=== PATIENT | female | born 1945 | race Caucasian/White ===

== ENCOUNTER 2020-08-23 10:08 | Outpatient (REF) | payer MEDICARE, SELFPAY ==
--- NOTE | 2020-08-23 | MM_ITS ---
EXAMINATION: MM SCREENING DIGITAL BREAST TOMOSYNTHESIS, BILATERAL CLINICAL INFORMATION: Screening. Asymptomatic. The lifetime risk of breast cancer based on the Tyrer-Cuzick Model is 2%. COMPARISON: Mammography: 08/18/2019, 08/17/2018 TECHNIQUE: Digital breast tomosynthesis is performed in both the craniocaudal and mediolateral oblique views along with computer-aided detection (CAD). Synthesized 2D images are generated from the tomosynthesis. FINDINGS: There are scattered areas of fibroglandular density (ACR BI-RADS breast composition Category b). There are no significant masses, abnormal calcifications, or other abnormalities. Parenchymal pattern is similar to prior exam. The axilla and skin contours are unremarkable. IMPRESSION: No significant changes from prior studies. ASSESSMENT: BI-RADS 1: Negative RECOMMENDATION: Routine annual mammography screening. This patient's information was entered into a reminder system with a target due date for their next mammogram.
== END 2020-08-23 10:09 | disposition home or self-care (01) ==
LOC: HO.MAMMO 10:08
PROVIDERS: Visit Provider Family Medicine
DX: Z12.31 Encounter for screening mammogram for malignant neoplasm of breast (principal)
CPT/HCPCS: 77063; 77067

== ENCOUNTER 2020-09-29 15:26 | Outpatient (REF) | payer MEDICARE, SELFPAY ==
--- NOTE | 2020-09-29 15:36 | XR_ITS ---
EXAMINATION: XR CHEST CLINICAL INFORMATION: Chest pain. COMPARISON: None TECHNIQUE: 2 views of the chest were obtained. FINDINGS: No significant abnormality is noted involving the heart, lungs, mediastinum, bony thorax or soft tissues. XR/XR chest 2V IMPRESSION: Unremarkable chest examination.
== END 2020-09-29 15:27 | disposition home or self-care (01) ==
LOC: HO.XRAY 15:26
PROVIDERS: PCP Family Medicine; Visit Provider Family Medicine
DX: R52 Pain, unspecified (principal); Z91.81 History of falling
CPT/HCPCS: 71046

== ENCOUNTER 2020-10-21 15:22 | Outpatient (REF) | payer MEDICARE, SELFPAY ==
[2020-10-21 16:13] LABS: Basophils Percent Auto 0.7 % (0-2); Eosinophils Absolute Auto 0.1 X10*3/uL (0.0-0.4); Hematocrit 36.6 % (37-47); Hemoglobin 11.4 g/dl (12.0-16.0); Imm Gran Abs Auto 0.01 X10*3/uL (0.00-0.03); Imm Gran Pct Auto 0.2 % (0.0-0.4); Lymphocytes Absolute Auto 2.7 X10*3/uL (1.2-4.9); Lymphocytes Percent Auto 48.7 % (20-40); MANUAL DIFF FLAG NO; Mean Corpuscular HGB Conc 31.1 g/dl (31.0-35.0); Mean Corpuscular Hemoglobin 29.8 pg (27.0-33.0); Mean Corpuscular Volume 95.8 fL (80-98); Mean Platelet Volume 10.4 fL (9.4-12.3); Monocytes Absolute Auto 0.5 X10*3/uL (0.1-1.2); Monocytes Percent Auto 8.1 % (2-11); Neutrophils Absolute Auto 2.2 X10*3/uL (2.0-8.3); Neutrophils Percent Auto 40.3 % (45-73); Platelet Count 241 X10*3/uL (160-400); Red Blood Count 3.82 X10*6/uL (4.20-5.50); Red Cell Distribution Width 12.6 % (11.0-16.0); White Blood Count 5.5 X10*3/uL (4.8-10.8)
[2020-10-25 18:57] LABS: Chromogranin A 266 ng/mL (25-140)
== END 2020-10-21 15:23 | disposition home or self-care (01) ==
LOC: HO.LAB 15:22
PROVIDERS: PCP Family Medicine; Visit Provider Family Medicine
DX: D51.0 Vitamin B12 deficiency anemia due to intrinsic factor deficiency (principal); D3A.098 Benign carcinoid tumors of other sites
CPT/HCPCS: 36415; 85025; 86316

== ENCOUNTER 2021-04-09 11:01 | Outpatient (REF) | payer MEDICARE, SELFPAY ==
[2021-04-09 17:54] LABS: MANUAL DIFF FLAG NO
[2021-04-09 17:59] LABS: Basophils Percent Auto 0.5 % (0-2); Eosinophils Absolute Auto 0.1 X10*3/uL (0.0-0.4); Hematocrit 33.3 % (37-47); Hemoglobin 10.8 g/dl (12.0-16.0); Imm Gran Abs Auto 0.01 X10*3/uL (0.00-0.03); Imm Gran Pct Auto 0.2 % (0.0-0.4); Lymphocytes Absolute Auto 2.7 X10*3/uL (1.2-4.9); Lymphocytes Percent Auto 48.9 % (20-40); Mean Corpuscular HGB Conc 32.4 g/dl (31.0-35.0); Mean Corpuscular Hemoglobin 30.8 pg (27.0-33.0); Mean Corpuscular Volume 94.9 fL (80-98); Mean Platelet Volume 10.3 fL (9.4-12.3); Monocytes Absolute Auto 0.5 X10*3/uL (0.1-1.2); Monocytes Percent Auto 8.1 % (2-11); Neutrophils Absolute Auto 2.3 X10*3/uL (2.0-8.3); Neutrophils Percent Auto 40.3 % (45-73); Platelet Count 237 X10*3/uL (160-400); Red Blood Count 3.51 X10*6/uL (4.20-5.50); Red Cell Distribution Width 12.8 % (11.0-16.0); White Blood Count 5.6 X10*3/uL (4.8-10.8)
[2021-04-09 18:55] LABS: Vitamin B12 315 pg/mL (200-900)
[2021-04-19 17:02] LABS: Chromogranin A 454 ng/mL (ADULTS: <311)
== END 2021-04-09 11:02 | disposition home or self-care (01) ==
LOC: HO.LAB 11:01
PROVIDERS: PCP Family Medicine; Visit Provider Family Medicine
DX: D64.9 Anemia, unspecified (principal); D3A.00 Benign carcinoid tumor of unspecified site
CPT/HCPCS: 36415; 82607; 85025; 86316

== ENCOUNTER 2021-06-25 11:47 | Outpatient (REF) | payer MEDICARE, SELFPAY ==
--- NOTE | ~2021-06-25 | XR_ITS ---
EXAMINATION: XR CHEST CLINICAL INFORMATION: Shortness of breath. Covid positive COMPARISON: 09/29/2020 TECHNIQUE: 2 views of the chest were obtained. FINDINGS: Subtle patchy infiltration noted relatively peripherally greatest at the left base suspicious for atypical infection. This is equivocal and clinical correlation is indicated. No pleural effusion. Heart and mediastinum normal. No osseous abnormality. XR/XR chest 2V IMPRESSION: Equivocal subtle patchy infiltrates as above.
== END 2021-06-25 11:48 | disposition home or self-care (01) ==
LOC: HO.XRAY 11:47
PROVIDERS: PCP Family Medicine; Visit Provider Family Medicine
DX: U07.1 COVID-19 (principal); R06.02 Shortness of breath
CPT/HCPCS: 71046

== ENCOUNTER 2021-07-02 11:21 | Outpatient (REF) | payer MEDICARE, SELFPAY ==
[2021-07-02 12:04] LABS: COVID-19 Test Negative (Negative)
== END 2021-07-02 11:22 | disposition home or self-care (01) ==
LOC: HO.LAB 11:21
PROVIDERS: PCP Family Medicine; Visit Provider Internal Medicine
DX: Z20.822 Contact with and (suspected) exposure to COVID-19 (principal)
CPT/HCPCS: 36415; 87635; C9803

== ENCOUNTER 2021-09-05 10:36 | Outpatient (REF) | payer MEDICARE, SELFPAY ==
[2021-09-07 03:50] LABS: SARS COV2 IgG Negative (Negative)
== END 2021-09-05 10:37 | disposition home or self-care (01) ==
LOC: HO.LAB 10:36
PROVIDERS: PCP Family Medicine; Visit Provider Internal Medicine
DX: Z20.822 Contact with and (suspected) exposure to COVID-19 (principal)
CPT/HCPCS: 36415; 86769

== ENCOUNTER 2021-10-05 15:12 | Outpatient (REF) | payer MEDICARE, SELFPAY ==
--- NOTE | ~2021-10-05 | MM_ITS ---
EXAMINATION: MM SCREENING DIGITAL BREAST TOMOSYNTHESIS, BILATERAL CLINICAL INFORMATION: Screening. Asymptomatic. The lifetime risk of breast cancer based on the Tyrer-Cuzick Model is 3%. COMPARISON: Mammography: 08/23/2020, 08/18/2019, 08/17/2018 TECHNIQUE: Digital breast tomosynthesis is performed in both the craniocaudal and mediolateral oblique views along with computer-aided detection (CAD). Synthesized 2D images are generated from the tomosynthesis. FINDINGS: There are scattered areas of fibroglandular density (ACR BI-RADS breast composition Category b). There are no significant masses, abnormal calcifications, or other abnormalities. Parenchymal pattern is similar to prior studies. No developing density. No significant changes. MM/MM tomosynthesis screening BI IMPRESSION: No mammographic evidence of malignancy. ASSESSMENT: BI-RADS 1: Negative RECOMMENDATION: Routine annual mammography screening. This patient's information was entered into a reminder system with a target due date for their next mammogram.
== END 2021-10-05 15:13 | disposition home or self-care (01) ==
LOC: HO.MAMMO 15:12
PROVIDERS: Visit Provider Family Medicine
DX: Z12.31 Encounter for screening mammogram for malignant neoplasm of breast (principal)
CPT/HCPCS: 77063; 77067

== ENCOUNTER 2021-12-16 16:25 | Outpatient (REF) | payer MEDICARE, SELFPAY ==
[2021-12-16 16:40] LABS: MANUAL DIFF FLAG NO
[2021-12-16 17:09] LABS: Basophils Percent Auto 0.8 % (0-2); Eosinophils Absolute Auto 0.1 X10*3/uL (0.0-0.4); Eosinophils Percent Auto 1.8 % (0-4); Hematocrit 35.4 % (37.0-47.0); Hemoglobin 11.1 g/dl (12.0-16.0); Lymphocytes Absolute Auto 2.7 X10*3/uL (1.2-4.9); Lymphocytes Percent Auto 53.8 % (20-40); Mean Corpuscular HGB Conc 31.4 g/dl (31.0-35.0); Mean Corpuscular Hemoglobin 29.8 pg (27.0-33.0); Mean Corpuscular Volume 95.2 fL (80.0-98.0); Mean Platelet Volume 10.3 fL (9.4-12.3); Monocytes Absolute Auto 0.4 X10*3/uL (0.1-1.2); Monocytes Percent Auto 7.3 % (2-11); Neutrophils Absolute Auto 1.8 x10*3/uL (2.0-8.3); Neutrophils Percent Auto 36.3 % (45-73); Platelet Count 227 X10*3/uL (160-400); Red Blood Count 3.72 X10*6/uL (4.20-5.50); Red Cell Distribution Width 12.3 % (11.0-16.0); White Blood Count 4.9 X10*3/uL (4.8-10.8)
[2021-12-16 19:31] LABS: Vitamin B12 650 pg/mL (200-900)
== END 2021-12-16 16:26 | disposition home or self-care (01) ==
LOC: HO.LAB 16:25
PROVIDERS: PCP Family Medicine; Visit Provider Family Medicine
DX: D64.9 Anemia, unspecified (principal)
CPT/HCPCS: 36415; 82607; 85025

== ENCOUNTER 2023-11-15 17:36 | Emergency (ER) | payer MEDICARE, SELFPAY ==
[2023-11-15 17:58] VITALS: BP 179/66; PULSE 70; RESP 18; TEMP 36.7; O2SAT 94; BMI 28.0
--- NOTE | 2023-11-15 18:01 | ED_ITS ---
HPI - General Adult General Chief complaint: Epistaxis Stated complaint: blood thinners/bloody nose/heart surg 09/23 Time Seen by Provider: 11/15/23 22:43 Source: patient Mode of arrival: ambulatory Limitations: no limitations History of Present Illness HPI narrative: Patient is on Plavix and aspirin come noticed bleeding from the left nostril that is for last few hours which stoppedAfter arrival in the ER no history of epistaxis in the past no melena or bleeding from any other place Related Data Home Medications Medication Instructions Recorded Confirmed cyanocobalamin (vitamin B-12) 1,000 mcg subcut Q4W 09/04/21 09/04/21 1,000 mcg/mL injection solution Allergies Allergy/AdvReac Type Severity Reaction Status Date / Time latex Allergy Mild redness Verified 09/04/21 17:28 milk [MILK] Allergy Unknown PER TESTING Unverified 09/04/21 17:28 mushroom [MUSHROOM] Allergy Unknown PER TESTING Unverified 09/04/21 17:28 Review of Systems 2 Review of Systems: Yes all other systems are reviewed and are negative [facility] Social History Social History Patient Tobacco Use Status: Former Tobacco user Advance Directives: No Advance Directives Information Provided: No Physical Exam ED Vital Signs: Vital Signs - 24 hr 11/15/23 17:58 Temperature 98.0 F Pulse Rate 70 Respiratory Rate 18 Blood Pressure 179/66 H Pulse Oximetry 94 Oxygen Delivery Method Room Air BMI result Body Mass Index 28.0 Appearance: Alert. Oriented X3. No acute distress. Eyes: No pallor or icterus ENT: Pharynx normal. Oral Mucosa moist, no active bleeding from the nose Neck: Normal inspection. Neck supple. CVS: Normal heart rate and rhythm. Pulses normal. Respiratory: No respiratory distress. Equal air entry bilateral, Abdomen: Soft and nontender. Skin: Skin warm and dry. Normal skin color. Normal skin turgor. Neuro: Oriented X 3. Course Course Course Narrative: RME: 77 year Yo female presents to ED for epistaxis today. Patient is on Plavix and aspirin. Will order basic labs including coags. Bleeding improved and resolving. Basim be evaluated by ED provider Medical Decision Making Medical Decision Making MDM Narrative: Patient with minor anterior epistaxis which stopped spontaneously labs are stable patient advised use humidifier at home and report to the ER if recurrence of bleeding. Patient also advised to apply local pressure if recurrence of the bleeding Lab Data MDM Lab Attestation statement: I reviewed the patient's lab results. 11/15/23 18:06 11/15/23 18:06 Labs: Lab Results 11/15/23 Range/Units 18:06 WBC 5.4 (4.8-10.8) X10*3/uL RBC 3.50 L (4.20-5.50) X10*6/uL Hgb 10.5 L (12.0-16.0) g/dl Hct 33.1 L (37.0-47.0) % MCV 94.6 (80.0-98.0) fL MCH 30.0 (27.0-33.0) pg MCHC 31.7 (31.0-35.0) g/dl RDW 13.5 (11.0-16.0) % Plt Count 231 (160-400) X10*3/uL MPV 10.0 (9.4-12.3) fL Immature Gran % (Auto) 0.0 (0.0-0.4) % Neut % (Auto) 41.2 L (45-73) % Lymph % (Auto) 43.9 H (20-40) % Catron % (Auto) 9.9 (2-11) % Eos % (Auto) 4.3 H (0-4) % Baso % (Auto) 0.7 (0-2) % Lymph # (Auto) 2.4 (1.2-4.9) X10*3/uL Catron # (Auto) 0.5 (0.1-1.2) X10*3/uL Eos # (Auto) 0.2 (0.0-0.4) X10*3/uL Baso # (Auto) 0.0 (0.0-0.2) X10*3/uL Abs Immat Gran (auto) 0.00 (0.00-0.03) X10*3/uL Absolute Neuts (auto) 2.2 (2.0-8.3) x10*3/uL Absolute Nucleated RBC 0.000 (0.0-0.012) X10*3/uL Nucleated RBC % (auto) 0.0 (0.0-0.2) /100WBC PT 11.7 (11.1-13.3) SEC INR 1.0 (0.9-1.1) APTT 34.0 (26.0-36.4) SEC Sodium 142 (135-145) mmol/L Potassium 3.8 (3.3-5.1) mmol/L Chloride 107 (96-108) mmol/L Carbon Dioxide 25 (22-29) mmol/L Anion Gap 14 (12-20) BUN 19 H (9-16) mg/dL Creatinine 0.83 (0.5-1.4) mg/dL Estim Creat Clear Calc 52.2 Estimated GFR > 60 Random Glucose 96 (60-115) mg/dL Calcium 9.3 (8.4-10.2) mg/dL Total Bilirubin 0.3 (0.0-1.0) mg/dL AST 19 (5-31) U/L ALT 11 (0-31) U/L Alkaline Phosphatase 79 (39-117) U/L Total Protein 7.5 (6.5-8.0) g/dL Albumin 3.8 (3.5-5.0) g/dL Discharge Plan Discharge Clinical Impression: Epistaxis Patient Disposition: Home, Self-Care Instructions: Nosebleed (ED) Additional Instructions: Care and cautions as advised Report to the ER if recurrence of the bleed Prescriptions: No Action cyanocobalamin (vitamin B-12) 1,000 mcg/mL solution 1,000 mcg subcut Q4W Interventions: ED Discharge Assessment Last Done: 11/15/23 22:54 Discharge Date/Time: 11/15/23 22:55
[2023-11-15 18:10] LABS: MANUAL DIFF FLAG NO
[2023-11-15 18:12] LABS: Basophils Percent Auto 0.7 % (0-2); Eosinophils Absolute Auto 0.2 X10*3/uL (0.0-0.4); Eosinophils Percent Auto 4.3 % (0-4); Hematocrit 33.1 % (37.0-47.0); Hemoglobin 10.5 g/dl (12.0-16.0); Lymphocytes Absolute Auto 2.4 X10*3/uL (1.2-4.9); Lymphocytes Percent Auto 43.9 % (20-40); Mean Corpuscular HGB Conc 31.7 g/dl (31.0-35.0); Mean Corpuscular Volume 94.6 fL (80.0-98.0); Monocytes Absolute Auto 0.5 X10*3/uL (0.1-1.2); Monocytes Percent Auto 9.9 % (2-11); Neutrophils Absolute Auto 2.2 x10*3/uL (2.0-8.3); Neutrophils Percent Auto 41.2 % (45-73); Platelet Count 231 X10*3/uL (160-400); Red Cell Distribution Width 13.5 % (11.0-16.0); White Blood Count 5.4 X10*3/uL (4.8-10.8)
[2023-11-15 18:17] LABS: Prothrombin Time 11.7 SEC (11.1-13.3)
[2023-11-15 18:31] LABS: Alanine Aminotransferase 11 U/L (0-31); Albumin Level 3.8 g/dL (3.5-5.0); Alkaline Phosphatase 79 U/L (39-117); Anion Gap 14 (12-20); Aspartate Amino Transferase 19 U/L (5-31); Bilirubin Total 0.3 mg/dL (0.0-1.0); Blood Urea Nitrogen 19 mg/dL (9-16); Calcium 9.3 mg/dL (8.4-10.2); Carbon Dioxide 25 mmol/L (22-29); Chloride 107 mmol/L (96-108); Creatinine Clr Calc Pharmacy 52.2; Estimated Glomerular Filt Rate > 60; Glucose Random 96 mg/dL (60-115); Potassium 3.8 mmol/L (3.3-5.1); Sodium 142 mmol/L (135-145); Total Protein 7.5 g/dL (6.5-8.0)
== END 2023-11-15 22:55 | disposition home or self-care (01) ==
PROVIDERS: Physician Assistant; Emergency Provider Internal Medicine; PCP Family Medicine
DX: R04.0 Epistaxis (principal); Z79.01 Long term (current) use of anticoagulants; Z79.899 Other long term (current) drug therapy
CPT/HCPCS: 36415; 80053; 85025; 85610; 85730; 99282; 99283

== ENCOUNTER 2024-12-16 22:23 | Emergency (ER) | payer MEDICARE, SELFPAY ==
--- NOTE | ~2024-12-16 | XR_ITS ---
CLINICAL HISTORY: cough 2 view chest x-ray Comparison: Chest x-ray from 06/25/2021 Findings: New mild pulmonary opacities including right infrahilar region can be seen with pneumonitis or bronchitis. No pneumothorax. Small right pleural effusion versus pleural thickening. New sternotomy changes. Imaged mediastinum is otherwise unchanged. Degenerative changes include imaged shoulders, AC joints, and spine. Mild vertebral height losses appear unchanged. Mild rib deformities appear old chronic. IMPRESSION: New right infrahilar opacities concerning for pneumonitis. This document has been electronically signed by: Ramez Calabrese MD on 12/17/2024 00:05:37
--- NOTE | ~2024-12-16 | CT_ITS ---
EXAMINATION: CT CHEST WITHOUT IV CONTRAST INDICATION: cough, brown sputum, ?pleural effusion vs PNA COMPARISON: There are no prior studies available for comparison. TECHNIQUE: Helical CT scan of the chest was performed without intravenous contrast. Coronal and sagittal reformatted images were generated and reviewed. This CT exam was performed with one or more of the following dose reduction techniques: automated exposure control, adjustment of the mA and/or kV according to patient size, use of iterative reconstruction technique. DLP: mGy-cm CHEST: THYROID: There is a 2.0 x 1.1 cm nodule of the left thyroid lobe. LUNGS: There is patchy airspace opacity in the right middle lobe and in both lower lobes, compatible with pneumonia. There is a 4 mm nodule in the right lower lobe (series 4, image 99). MEDIASTINUM: There is no mediastinal lymphadenopathy. TALITA: Evaluation of the hilar regions is limited by lack of intravenous contrast material. CARDIOVASCULATURE: The heart is enlarged. There is no pericardial effusion. The thoracic aorta is normal in caliber. DEGREE OF CORONARY CALCIFICATION: severe, status post CABG. PLEURA: There is no pleural effusion. No pneumothorax. MAIN AIRWAYS: The mainstem bronchi and proximal branches are patent. AXILLA: There is no axillary lymphadenopathy. BONES AND SOFT TISSUES: Unremarkable UPPER ABDOMEN: The visualized portions of the liver, spleen, and adrenals have an unremarkable appearance. There is a small hiatal hernia. CT/CT chest wo IV con IMPRESSION: 1. Patchy airspace opacities in the right middle lobe and in both lower lobes, compatible with pneumonia. Follow-up is recommended to document resolution. 2. 4 mm right lower lobe nodule. Six-month follow-up chest CT is recommended. 3. Cardiomegaly. Small hiatal hernia. Electronically signed by: Manny Gaines MD 12/17/2024 08:29 AM EST
[2024-12-16 23:04] VITALS: BP 136/79; PULSE 103; RESP 18; TEMP 37.4; O2SAT 94; BMI 30.3
[2024-12-16 23:32] LABS: IDNOW Serial# 6674DD1D; Strep A Nucleic Acid Negative (Negative)
[2024-12-16 23:38] LABS: COVID-19 Test Negative (Negative); IDNOW Serial# 58CA691E
[2024-12-16 23:39] LABS: IDNOW Serial# 55D5AD1C; Influenza A Negative (Negative); Influenza B2 Negative (Negative)
[2024-12-17 05:23] VITALS: BP 149/67; PULSE 89; RESP 16; TEMP 37; O2SAT 94
--- NOTE | 2024-12-17 06:44 | ED.GENADULT ---
HPI - General Adult General Chief complaint: General Medical Stated complaint: loss of voice Time Seen by Provider: 12/17/24 06:40 Source: patient Mode of arrival: ambulatory Limitations: no limitations History of Present Illness ED Provider: SUSAN STOKES PA-C HPI narrative: 79-year-old female with pmhx significant for HTN, HDL, triple bypass, anxiety presents to the ED today for evaluaiton of chest congestion, cough productive of brown sputum, sore throat and hoarse voice x2 days. She was evaluated at urgent care yesterday for same symptoms. She was diagnosed with bronchitis, prescribed an albuterol inhaler and Z-Reuben. She reports picking both medications up from the pharmacy however has been not started Z-Reuben yet. She decided to come to the ED for further evaluation as she was concerned for pneumonia. Patient reports Googling the medications that she was prescribed yesterday. She notes concern about medication interactions with the albuterol prescribed and her current metoprolol. Denies any hx of lung conditions. Admits to smoking tobacco x4 years when she was younger. She does not currently smoke tobacco or vape. Denies fever, chills, chest pain, wheezing, SOB, palpitations, hemoptysis. Related Data Home Medications ?Medication ?Instructions ?Recorded ?Confirmed cyanocobalamin (vitamin B-12) 1,000 mcg subcut Q4W 09/04/21 09/04/21 1,000 mcg/mL injection solution Previous Rx's ?Medication ?Instructions ?Recorded doxycycline monohydrate 100 mg 100 mg PO BID 7 days #14 caps 12/17/24 capsule Allergies Allergy/AdvReac Type Severity Reaction Status Date / Time latex Allergy Mild redness Verified 12/16/24 23:08 milk [MILK] Allergy Unknown PER TESTING Unverified 12/16/24 23:08 mushroom [MUSHROOM] Allergy Unknown PER TESTING Unverified 12/16/24 23:08 Review of Systems Review of Systems: Constitutional: No fever, chills, fatigue, night sweats, weight changes ENT/Mouth: No ear pain, hearing loss, nasal congestion, sinus pain, rhinorrhea, +sore throat, +horse voice Eyes: No eye pain, swelling, redness, vision changes, discharge Cardio: No chest pain, palpitations, GIBSON, orthopnea, peripheral edema Pulm: No SOB, wheezing, dyspnea, hemoptysis, +productive cough GI: No nausea, vomiting, hematemesis, abdominal pain, diarrhea, constipation, hematochezia, melena : No irregular bleeding, dysuria, frequency, urgency, hesitancy, hematuria, flank pain, urinary flow changes, urinary incontinence or retention MSK: No back pain, neck pain, joint pain, myalgias Skin: No lesions, rashes Neuro: No weakness, numbness, paresthesias, LOC, dizziness, headache Psych: No anxiety/panic, depression, SI/HI, AH/VH All other systems reviewed and are negative. [facility] Past Medical History Attestation statement: The following information was validated with the patient. Source: old records reviewed and nursing notes reviewed Social History Social History Patient Tobacco Use Status: Former Tobacco user Advance Directives: No Advance Directives Information Provided: Yes Physical Exam ED Vital Signs: Vital Signs - 24 hr 12/16/24 23:04 12/17/24 05:23 Temperature 99.4 F 98.6 F Pulse Rate 103 H 89 Respiratory Rate 18 16 Blood Pressure 136/79 149/67 H Pulse Oximetry 94 94 Oxygen Delivery Method Room Air Room Air BMI result Body Mass Index 30.3 low grade temp of 99.4F on arrival, tachycardic. vitals are otherwise wnl. General: Well appearing, in no acute distress. Skin: Warm, dry, intact. No rashes or lesions. Head: Normocephalic, atraumatic. EENT: Hearing is intact b/l. Conjunctiva clear. PERRLA. EOM intact. Moist mucous membranes.? Neck: Supple without LAD Cardiac: Chest wall symmetric. RRR Lungs: Normal respiratory effort without accessory muscle use. ambulating w/ steady gait without resp distress. no tripoding. no cough appreciated. CTA bilaterally. Back: No midline spinous or paraspinal tenderness. No step off deformity. Ext: Upper and lower extremities atraumatic, without tenderness, deformity, swelling or erythema. no pitting edema. no calf tenderness. Neuro: AOx3. Normal speech. Ambulating with steady gait. Psych: Appropriate mood and affect. Responds appropriately to questions. Course Course Course Narrative: Patient tested negative for COVID, flu, RSV, strep throat. Her chest x-ray demonstrated pulmonary opacities to right infrahilar region questioning pneumonitis or bronchitis. Also question small right pleural effusion versus pleural thickening. New sternotomy changes secondary to recent I past. Otherwise unremarkable. To further characterize findings on chest x-ray, CT chest was obtained which shows patchy airspace opacities to right middle lobe and both lower lobes compatible with pneumonia. No pleural effusion. There is an incidental finding of 4 mm right lower lobe nodule recommending six-month follow up CT chest. > I discussed all workup results with patient. She tells me she was unaware of any lung nodule. 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 She has an appointment with them coming up. I advised her to follow up with either them or primary care provider for repeat imaging in order to follow progression of lung nodule. She verbalizes understanding. > she has a prescription for azithromycin prescribed by urgent care yesterday. I advised her to continue this medication. I will be adding on doxycycline. Advised to take this for 7 days. Patient has remained stable throughout ED visit today. Discussed worrisome signs and symptoms and when to return to the ED. All questions answered at this time. Patient is agreeable with disposition and stable for discharge. Medical Decision Making Medical Decision Making [facility] Narrative: 79-year-old female with pmhx significant for HTN, HDL, triple bypass, anxiety presents to the ED today for evaluaiton of chest congestion, cough productive of brown sputum, sore throat and hoarse voice x2 days. On arrival, patient initially tachycardic to 103 with low-grade temp of 99.4?. She was well-appearing and in no acute distress. Normal respiratory effort without accessory muscle use. ambulating w/ steady gait without resp distress. No tripoding. No cough appreciated. CTA bilaterally. No pitting edema. No calf tenderness. Differential diagnosis includes viral syndrome, bronchitis, pneumonia, laryngitis, sinusitis. Unlikely ACS, arrhythmia, PE, [employer], retropharyngeal abscess, epiglottitis. Plan for viral/ strep swabs, cxr, and re-evaluation. Differential Diagnosis Differential Diagnoses: The differential diagnosis associated with the presentation includes As above Admission/Observation Not indicated Lab Data [facility] Lab Attestation statement: I reviewed the patient's lab results. As above Labs: Lab Results 12/16/24 Range/Units 23:16 COVID-19 (DIMA) Negative (Negative) COVID-19 Clin Com See Note Influenza Type A (BHARAT) Negative (Negative) Influenza Type B (BHARAT) Negative (Negative) Influenza A & B Note See Note S. pyogenes GrpA BHARAT Negative (Negative) Independent Interpretation I performed an independent interpretation of an: Plain X-Ray and CT Scan Interpretation: CT chest showing opacities to right middle lobe Radiology Impression Discussion of test interpretation with radiology: I have reviewed the radiologist's reading. Radiologist Impression: Procedure(s): CT chest wo IV con Accession Number(s): [id number] cc: Bradley Huitron MD; Susan Stokes~ Report Number: [id number]: Total DLP = 287.00 mGy-cm EXAMINATION: CT CHEST WITHOUT IV CONTRAST INDICATION: cough, brown sputum, ?pleural effusion vs PNA COMPARISON: There are no prior studies available for comparison. TECHNIQUE: Helical CT scan of the chest was performed without intravenous contrast. Coronal and sagittal reformatted images were generated and reviewed. This CT exam was performed with one or more of the following dose reduction techniques: automated exposure control, adjustment of the mA and/or kV according to patient size, use of iterative reconstruction technique. DLP: mGy-cm CHEST: THYROID: There is a 2.0 x 1.1 cm nodule of the left thyroid lobe. LUNGS: There is patchy airspace opacity in the right middle lobe and in both lower lobes, compatible with pneumonia. There is a 4 mm nodule in the right lower lobe (series 4, image 99). MEDIASTINUM: There is no mediastinal lymphadenopathy. TALITA: Evaluation of the hilar regions is limited by lack of intravenous contrast material. CARDIOVASCULATURE: The heart is enlarged. There is no pericardial effusion. The thoracic aorta is normal in caliber. DEGREE OF CORONARY CALCIFICATION: severe, status post CABG. PLEURA: There is no pleural effusion. No pneumothorax. MAIN AIRWAYS: The mainstem bronchi and proximal branches are patent. AXILLA: There is no axillary lymphadenopathy. BONES AND SOFT TISSUES: Unremarkable UPPER ABDOMEN: The visualized portions of the liver, spleen, and adrenals have an unremarkable appearance. There is a small hiatal hernia. CT/CT chest wo IV con IMPRESSION: 1. Patchy airspace opacities in the right middle lobe and in both lower lobes, compatible with pneumonia. Follow-up is recommended to document resolution. 2. 4 mm right lower lobe nodule. Six-month follow-up chest CT is recommended. 3. Cardiomegaly. Small hiatal hernia. External Record Review External record reviewed: Inpatient record Prescription Management I considered prescription management with: Antibiotic (Azithromycin, doxycycline) Social Determinants Patient?s care significantly limited by Social Determinants of Health including: Other Social Determinant of Health Critical Care Time Critical Care Time Critical Care Time: No Discharge Plan Discharge Clinical Impression: CAP (community acquired pneumonia) Patient Disposition: Home, Self-Care Instructions: Community Acquired Pneumonia (ED) Additional Instructions: You tested negative for COVID, flu, RSV, strep throat. The CT scan of your chest shows findings concerning for pneumonia within your right middle lobe and both lower lobes of your lungs. As discussed, there is an incidental finding of a 4 mm nodule within your right lower lobe. This needs to be followed up with outpatient. Recommending repeat CT of your chest in 6 months. Please follow up with your oncologist regarding this finding. Treatment for pneumonia is with antibiotics. You picked up a prescription for azithromycin prescribed by urgent care yesterday. Please take this to completion for treatment. I am also adding a 2nd antibiotic, doxycycline for double coverage. Please take this as prescribed for the next 7 days. Follow up with primary care provider. Return with any new or worsening symptoms. In the case of an emergency call 911. CT chest wo IV con IMPRESSION: 1. Patchy airspace opacities in the right middle lobe and in both lower lobes, compatible with pneumonia. Follow-up is recommended to document resolution. 2. 4 mm right lower lobe nodule. Six-month follow-up chest CT is recommended. 3. cardiomegaly. small hiatal hernia. Prescriptions: New doxycycline monohydrate 100 mg capsule 100 mg PO BID 7 Days Qty: 14 0RF No Action cyanocobalamin (vitamin B-12) 1,000 mcg/mL solution 1,000 mcg subcut Q4W Referrals: Bradley Huitron MD [Primary Care Provider] - Print Language: Luxembourgish
[2024-12-17 09:21] VITALS: BP 149/67; PULSE 89; RESP 16; TEMP 37; O2SAT 94
== END 2024-12-17 09:22 | disposition home or self-care (01) ==
PROVIDERS: Emergency Provider Emergency Medicine; PCP Family Medicine
DX: J18.9 Pneumonia, unspecified organism (principal); R05.9 Cough, unspecified; J02.9 Acute pharyngitis, unspecified; I10 Essential (primary) hypertension; I51.7 Cardiomegaly; K44.9 Diaphragmatic hernia without obstruction or gangrene
CPT/HCPCS: 71046; 71250; 87502; 87635; 87651; 99283; 99284

== ENCOUNTER → 2024-12-16 23:32 | Outpatient (BNV) | payer MEDICARE, SELFPAY | PROVIDERS: Visit Provider Radiology Neuroradiology | DX: R05.9 Cough, unspecified (principal) | CPT/HCPCS: 71046 ==

== ENCOUNTER → 2024-12-17 07:09 | Outpatient (BNV) | payer MEDICARE, SELFPAY | PROVIDERS: Emergency Provider Emergency Medicine; PCP Family Medicine; Visit Provider Radiology Diagnostic Radiology | DX: R05.9 Cough, unspecified (principal) | CPT/HCPCS: 71250 ==

== ENCOUNTER 2025-11-02 07:03 | Emergency (ER) | payer MEDICARE, SELFPAY ==
--- NOTE | ~2025-11-02 | XR_ITS ---
CLINICAL HISTORY: cough 2 view chest x-ray Comparison: CR - XR CHEST 2V - 12/16/24 23:41 EST Findings: No consolidation or effusion. Mild chronic interstitial prominence. Heart size is normal. No acute fracture. IMPRESSION: 1. No acute findings. This document has been electronically signed by: Felipe Sales MD on 11/02/2025 08:15:35
[2025-11-02 07:13] VITALS: BP 148/69; PULSE 77; RESP 18; TEMP 36.8; O2SAT 94; BMI 31.9
[2025-11-02 07:46] LABS: Strep A Nucleic Acid Negative (Negative)
[2025-11-02 08:16] LABS: Resp Syncy Virus RNA Qual PCR NEGATIVE (Negative); SARS COV2 PCR INHOUSE NEGATIVE (Negative)
--- OUTSIDE RECORDS SUMMARY | 2025-11-02 08:44 | XMS_ITS | Patient Health Record ---
Author Organization [facility] Address [address] [place] [address] Care Team Providers Care Grades 1 Through 5 Teacher Name Role Phone Jorge Taipa MD Primary Care Provider UnavailLuís Lee Unavailable [phone] Allergies Allergen (clinical drug ingredient) Drug/Non Drug Allergy documented on EMR Reaction Allergy Type Onset Date Status Epinephrine epinephrine (uncoded) Unknown Allergy Inactive Novacaine Unknown Drug Allergy Inactiv e latex Unknown Drug Allergy Active Reason For Referral No Information Medications Medication SIG (Take, Route, Frequency, Duration) Notes Start Date End Date Status L22-Dryyhm b12 shots monthly A ctive Multivitamin Active Social History Tobacco Use: Social History Observation Description Date Details (start date - stop date) Former Smoker NA - NA Tobacco Use/Smoking Question Answer Notes Are you a: former smoker When did you start smoking? 1966 When did you stop smoking? 1977 Additional Findings: Tobacco Non-User Current no n-smoker Alcohol Screen Question Answer Notes Did you have a drink containing alcohol in the p ast year? Yes Points 0 Interpretation Negative Tobacco use other than smoking: Question Answer Notes Are you an other tobacco user? No Plan Of Treatment Pending Test Test Name Order Date X ray : Foot, left 3V 08/11/2017 [id number] 09/08/2017 [id number]- Debride <25 sq cm 09/22/2017 [id number]- Debride <25 sq cm 10/26/2017 [id number]- Debride <25 sq cm 03/08/2018 [id number]- Debride <25 sq cm 03/30/2018 Insurance Providers Payer Name Payer Address Payer Phone Subscriber Number Group Number Insured Name Patient Relationship to Insured Coverage Start Date Coverage End Date Medicare [employer] [address] [place] [address] [id number] Amena Paredes Self - patient is the insured 9 [employer] [address] [place] [address] [id number] Amena Paredes Self - patient is the insured Medical (General) History Medical History History ICD Code High blood pressure Osteoporosis Surgical History Surgery Date(Month/Year) tooth extraction, 02/2018
--- OUTSIDE RECORDS SUMMARY | 2025-11-02 08:44 | XMS_ITS | Clinical Summary ---
Author Organization [facility] Address [address] [facility] [address] [place] [id number] Phone Care Team Providers Care Author'S Agent Name Role Phone Bradley Huitron MD Primary Care Provider + Allergies Active Allergy Reactions Criticality Noted Date Comments Acetaminophen Low 02/27/2024 Other Reaction(s): from allergy testing Intradermal reaction during allergy test. Latex Itching,Rash Low 07/22/2024 rash,itchiness,bumps Penicillins Itching,Rash Low 02/27/2024 Medications aspirin 81 MG EC tablet Take 81 mg by mouth. 4 Active cyanocobalamin (VITAMIN B-12) 1,000 mcg/mL injection INJECT 1 ML INTRAMUSCULAR EVERY 30 DAYS 4 Active docusate sodium (COLACE) 100 MG capsule Take 100 mg by mouth. 3 Active escitalopram oxalate (LEXAPRO) 5 MG tablet take 1 tablet by mouth everyday at bedtime Active TOPROL XL 50 mg 24 hr tablet Take 100 mg by mouth. 4 Active valsartan (DIOVAN) 40 MG tablet Take 40 mg by mouth daily. Active multivit with minerals/lutei n (MULTIVITAMIN 50 PLUS ORAL) 0 Refills, Maintenance, 04/06/24 16:17:00 EDT, Partial fill upon patient request if the prescription is for a schedule II opioid drug. 4 Active Social History Tobacco Use Types Packs/Day Years Used Date Smoking Tobacco: Former Cigarettes Smokeless Tobacco: Never Tobacco Cessation:Counseling Given: Not Answered Alcohol Use Standard Drinks/Week Comments Yes 0 (1 standard drink = 0.6 oz pur e alcohol) rarely Education Answer Date Recorded Are you interested in more education? Not on katie e 07/22/2024 Are you concerned about learning? Not on file 07/22/2024 No 07/22/2024 No 07/22/2024 Digital Access Answer Date Recorded No 07/22/2024 No 07/22/2024 Reliable internet access at home? Not on file 07/22/2024 Device with a working camera? Not on file Comments Unknown Sex and Gender Information Value Date Recorded Sex Assigned at Not on file Legal Sex Female 12:35 PM EDT Gender Identity Not on file Sexual Orientation Not on file Last Filed Vital Signs Vital Sign Reading Time Taken Comments Blood Pressure 174/77 07/22/2024 12:58 PM EDT white coat syndrome Pulse 60 07/22/2024 12:58 PM EDT Temperature 36.7 C (98.1 F) 07/22/2024 12:58 PM EDT Respiratory Rate 20 07/22/2024 12:5 8 PM EDT Oxygen Saturation 99% 07/22/2024 12: 58 PM EDT Inhaled Oxygen Concentration - - Weight 77.1 kg (170 lb) 07/22/2024 12:5 8 PM EDT Height 160 cm (5' 3 ) 07/22/2024 12:58 PM EDT Body Mass Index 30.11 07/22/2024 12:58 PM EDT Plan of Treatment Health Maintenance Due Date Last Done Comments Adult Td,Tdap Booster 1945 CREATININE LEVEL 1943 POTASSIUM LEVEL 1943 DEPRESSION SCREENING 1955 PNEUMOCOCCAL VACCINES (50+ y ears) (1 of 1 - PCV) 1993 ZOSTER VACCINES (1 of 2) 1993 OSTEOPOROSIS SCREENING INITI AL (ONE-TIME) 2008 RSV VACCINE (1 - 1-dose 75+ series) 2018 INFLUENZA VACCINE (#1) 2025 COVID-19 VACCINE ( - 2024-2 6 season) 2025 HEPATITIS A VACCINES Aged Out No long er eligible based on patient's age to complete this topic HIB VACCINES Aged Out No longer eligi ble based on patient's age to complete this topic MENINGOCOCCAL VACCINES (ACWY) Aged Out No longer eligible based on patient's age to complete this topic MENINGOCOCCAL VACCINES (B) Aged Out N o longer eligible based on patient's age to complete this topic Medical Devices Not on file Insurance MEDICARE PART A & B [employer] MEDEX SUPPLEMENT MEDICARE PART A & B [employer] MEDEX SUPPLEMENT MEDICARE PART A & B [employer] MEDEX SUPPLEMENT MEDICARE PART A & B [employer] CR[employer] MEDEX SUPPLEMENT MEDICARE PART A & B [employer] MEDEX SUPPLEMENT MEDICARE PART A & B [employer] ELDRED MEDEX SUPPLEMENT Care Teams Author'S Agent Relationship Specialty Start Date End Date Bradley Huitron MD [address] [place] [id number] PCP - General Family Medicine 07/22/24 Additional Source Comments The information contained in this document represents components of the legal health record. It is not the complete legal health record.[facility]
--- OUTSIDE RECORDS SUMMARY | 2025-11-02 08:45 | XMS_ITS | Encounter Summary ---
Author Organization [facility], Address [address] [place] [address] Phone Care Team Providers Care Design Verification Engineer Name Role Phone Bradley Huitron MD Primary Care Provider [phone] Encounter Details Date Type Department Care Team (Late st Contact Info) Description 01/26/2024 Documentation Only [facility], [address] [place] [phone] Giselle Vel[address] [place] [phone] Social History Tobacco Use Types Packs/Day Years Used Date Smoking Tobacco: Never Assessed Comments Unknown Sex and Gender Information Value Date Recorded Sex Assigned at Female 02/25/2024 10:48 PM EDT Legal Sex Female 10:40 AM EDT Gender Identity Female 02/25/2024 10:48 PM EDT Sexual Orientation Straight 02/25/2024 10 :48 PM EDT documented as of this encounter Plan of Treatment Not on file documented as of this encounter Visit Diagnoses Not on filedocumented in this encounter Care Teams Design Verification Engineer Relationship Specialty Start Date End Date Bradley Huitron MD [address] [phone] PCP - General Family Medicine 01/26/24 documented as of this encounter
--- OUTSIDE RECORDS SUMMARY | 2025-11-02 08:45 | XMS_ITS | Patient Health Record ---
Author Organization [facility] Address [address] [place] [address] Care Team Providers Care Calender Machine Operator Name Role Phone Willie (RETIRED) Jorge DOUGLASS Primary Care Provider Unavailable Manny Frye Unavailable [phone] Allergies Allergen (clinical drug ingredient) Drug/Non Drug Allergy documented on EMR Reaction Allergy Type Onset Date Status epinephrine Adrenalin Unknown Drug Allergy Activ e novacaine Unknown Drug Allergy Active Reason For Referral No Information Medications Medication SIG (Take, Route, Frequency, Duration) Notes Start Date End Date Status Multi Vitamin/Minerals - Tablet Orally Active Cyanocobalamin 1000 MCG/ML Solution 1000mcg Injection monthly Active Immunizations Vaccine Route Administration Date Status Comme nts Influenza Unknown 12/28/2018 Refused Social History Tobacco Use: Social History Observation Description Date Details (start date - stop date) Former Smoker NA - NA Social History Drugs/Alcohol: Social Info Question Answer Notes Alcohol Screen Did you have a drink containing alcohol in the past year? Yes How often did you have a drink containing alcohol in the past year? Monthly or less (1 point) How many drinks did you have on a typical day when you were drinking in the past year? 1 or 2 drinks (0 point) How often did you have 6 or more drinks on one occasion in the past year? Never (0 point) Points 1 Interpretation Negative Tobacco Use: Social Info Question Answer Notes Tobacco Use/Smoking Patient is a former smoker How long has it been since you last smoked? > 10 years Additional Details Category Social Info Options Details Miscellaneous: Marital status: Occupation: Retired realtor; former RN many years ago--she and her recently purchased a [employer] in [employer] specializing in posters Section Notes: Nonsmoker; no sig alcohol Nonsmoker; no sig alcohol Nonsmoker; no sig alcohol Nonsmoker; no sig alcohol Problems Problem Type SNOMED Code ICD Code Onset Dates Problem Status W/U Status Risk Notes Problem Epigastric pain (81528567) Epigastric pain (R10.13) Active confirmed Problem Pernicious anemia (86166511) Pernicious anemia (D51.0) Active confirmed Problem Benign carcinoid tumor of stomach (09467072718132 9) 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 Plan Of Treatment Pending Test Test Name Order Date BUN 12/28/2018 CREATININE 12/28/2018 LIVER PROFILE 10/18/2017 AMYLASE 10/18/2017 LIPASE 10/18/2017 CBC w DIFF 10/18/2017 5 HIAA 12/28/2018 Future Test Test Name Order Date UPPER GI ENDOSCOPY 07/13/2017 Insurance Providers Payer Name Payer Address Payer Phone Subscriber Number Group Number Insured Name Patient Relationship to Insured Coverage Start Date Coverage End Date MEDICARE OF [place] [address] [facility] [address] [id number] THEOVIVIANE Self - patient is the insured MEDEX ATTN CLAIMS [address] [place] [address] [phone] [id number] THEO, VIVIANE Self - patient is the insured Medical (General) History Medical History History ICD Code Hypertension Denies DC,DM,CVA,Lung disease,renal dise ase Negative screening colonoscopies 2015 an d 2005 while living in [place] Pernicious anemia with carci noid tumor in stomach--EGD/EUS and biopsies with MAC in 2015 while living in [place]--this was approximately 10-12 mm in diameter along the anterior gastric wall in the body of the stomach--- biopsies at that time described a Grade 1 carcinoid tumor and the EUS described involvement of layers one and 2 of the gastric wall. The lesion was only biopsied at that time and not removed. Panic attacks/Anxiety Essential head tremor Positional vertigo EGD in September of 2017 reve aled the known carcinoid tumor in the stomach, confirmed by biopsies along the anterior gastric wall--the endoscopy was otherwise unremarkable. I did review the pathology with the pathologist at [facility]. This was a well-differentiated carcinoid tumor without any increased mitoses nor any other aggressive features. Chromogranin A level was 192 in 2017 and 294 in November of 2018, with the upper limit of normal being 140 She underwent an endoscopic ultrasound and endoscopic resection of the small gastric carcinoid tumor by Dr. Becerra at [facility] in March of 2019. She had a normal 24-hour 5 HIAA and CAT scan of the abdomen prior to that. The resected carcinoid tumor size was 1.1 cm and was a well-differentiated neuroendocrine neoplasm, Grade 1. There was involvement of the submucosa and a mitosis rate of zero. Ki-67 labeling index was 1-2%. There was lymphovascular and perineural invasion. Hpylori was negative and there was patchy intestinal metaplasia. The tumor was < 0.1 cm from the margin. The tumor stage was pT2. A followup chromogranin was 200 in June of 2019. Surgical History Surgery Date(Month/Year) Tonsillectomy and adenoidectomy Periodontal surgery
--- OUTSIDE RECORDS SUMMARY | 2025-11-02 08:45 | XMS_ITS | Clinical Summary ---
Author Organization [facility] [place], Address [address] [place] [address] Phone Care Team Providers Care Sql Server Bi Developer Name Role Phone Bradley Huitron MD Primary Care Provider [phone]- [phone] Allergies Active Allergy Reactions Criticality Noted Date Comments Acetaminophen 02/27/2024 Latex 02/27/2024 Penicillins Itching,Rash Low 02/27/2024 Medications aspirin (ST PARAG) 81 MG EC tablet Take 81 mg by mouth 1 (one) time each day Active clopidogrel (PLAVIX) 75 MG tablet Take 75 mg by mouth 1 (one) time each day Active docusate sodium (COLACE) 100 MG capsule Take 100 mg by mouth in the morning and 100 mg in the evening. Active Cyanocobalamin 1000 MCG/ML kit Inject as directed Active escitalopram (LEXAPRO) 5 MG tablet Take 5 mg by mouth 1 (one) time each day Active Multiple Vitamin (multivitamin) capsule Take 1 capsule by mouth 1 (one) time each day Active rosuvastatin (CRESTOR) 40 MG tablet Take 40 mg by mouth 1 (one) time each day Active metoprolol succinate XL (TOPROL XL) 50 MG 24 hr tablet Take 50 mg by mouth 1 (one) time each day Do not crush or chew. Active valsartan (DIOVAN) 40 MG tablet Take 40 mg by mouth 1 (one) time each day Active Active Problems Problem Noted Date Diagnosed Date Hypertension 02/27/2024 Pernicious anemia 02/27/2024 Social History Tobacco Use Types Packs/Day Years Used Date Smoking Tobacco: Never Assessed Comments Unknown Sex and Gender Information Value Date Recorded Sex Assigned at Female 02/25/2024 10:48 PM EDT Legal Sex Female 10:40 AM EDT Gender Identity Female 02/25/2024 10:48 PM EDT Sexual Orientation Straight 02/25/2024 10 :48 PM EDT Plan of Treatment Health Maintenance Due Date Last Done Comments Pneumococcal Vaccine: 50+ Ye ars (1 of 2 - PCV) 1962 Influenza Vaccine (#1) 2025 Hepatitis B Vaccine Aged Out No longe r eligible based on patient's age to complete this topic Insurance Medicare [facility] Care Teams Sql Server Bi Developer Relationship Specialty Start Date End Date Bradley Huitron MD [address] [place] [id number] PCP - General Family Medicine 01/26/24
--- NOTE | 2025-11-02 09:16 | ED_ITS ---
HPI - URI/Sore Throat General Chief Complaint: Upper Respiratory Symptoms Stated Complaint: throat pain Time Seen by Provider: 11/02/25 08:45 Source: patient Mode of arrival: ambulatory Limitations: no limitations History of Present Illness ED Provider: CAROL Ghosh HPI Narrative: Subjective Chief Complaint: ?Sore throat and chest congestion with cough.? History of Present Illness: This is a female patient presenting with a 3?4 day history of fever, body aches, sore throat, chest congestion, and productive cough, with symptom onset beg inning on [place]. The cough has been persistent and is described as hard to expectorate; sputum was consistently clear until today, when the patient noticed a yellow tinge, which she found concerning. She reports significant sleep disturbance due to cough and congestion, which has impacted her ability to rest and daily functioning. The patient notes that symptoms have gradually worsened since onset, with no periods of improvement. She denies any specific exacerbating or relieving factors. Associated symptoms include fever, body aches, sore throat, chest congestion, productive cough with change in sputum color, wheezing, and trouble sleeping. She specifically denies chills, chest pain, shortness of breath, hemoptysis, palpitations, dizziness, syncope, gastrointestinal symptoms (nausea, vomiting, diarrhea, abdominal pain), rashes, recent travel, or exposure to animals. She has not had any prior similar episodes and denies known sick contacts at home or work, but does report a poss ible exposure to a coughing individual at a mall prior to symptom onset. Related Data Home Medications ?Medication ?Instructions ?Recorded ?Confirmed cyanocobalamin (vitamin B-12) 1,000 mcg subcut Q4W 09/04/21 1,000 mcg/mL injection solution Previous Rx's ?Medication ?Instructions ?Recorded amoxicillin 875 mg-potassium 1 tab PO BID 7 days #14 t abs 12/17/24 clavulanate 125 mg tablet albuterol sulfate 90 mcg/actuation 2 inh inhalation Q4 -6H PRN 11/02/25 breath activated powder inhaler shortness of breath or wheezing #1 ea benzonatate 100 mg capsule 100 mg PO BID PRN cough #20 caps 11/02/25 prednisone 20 mg tablet 40 mg (2 x 20 mg) PO DAILY 5 days 11/02/25 #10 tabs Allergies Allergy/AdvReac Type Severity Reaction Status Date / Time Penicillins Allergy Intermediate Unknown Verified 11/02/25 07:15 latex Allergy Mild redness Verified 11/02/25 07:15 milk (MILK) Allergy Unknown PER TESTING Verified 11/02/25 07:15 mushroom (MUSHROOM) Allergy Unknown PER TESTING Verified 11/02/25 07:15 Review of Systems Review of Systems: Review of Systems: * Constitutional: Positive for fever, body aches, sleep disturbance. Negative for chills, weight loss, night sweats. * ENT: Positive for sore throat. Negative for nasal discharge, epistaxis, ear pain, hearing loss. * Respiratory: Positive for chest congestion, productive cough with change in sputum color, difficulty expectorating, and wheezing. Negative for shortness of breath, hemoptysis. * Cardiovascular: Negative for chest pain, palpitations, dizziness, syncope. * Gastrointestinal: Negative for nausea, vomiting, diarrhea, abdominal pain. * Genitourinary: Reports difficulty achieving erections ( trouble getting it up ). Negative for dysuria, hematuria, frequency, urgency. * Musculoskeletal: Positive for body aches. Negative for joint pain, swelling. * Neurological: Negative for headache, weakness, numbness, confusion. * Dermatological: Negative for rashes, lesions. Yes all other systems are reviewed and are negative PMFSH Past Medical History Attestation statement: The following information was validated with the patient. Source: old records reviewed and nursing notes reviewed Social History Social History Patient Tobacco Use Status: Former Tobacco user Advance Directives: No Advance Directives Information Provided: Yes Do you have a plan to hurt others: No Plan Physical Exam Vital Signs: Vital Signs: Last Vital Signs Temp 98.3 F 11/02/25 07:13 Pulse 77 11/02/25 07:13 Resp 18 11/02/25 07:13 BP 148/69 H 11/02/25 07:13 Pulse Ox 94 11/02/25 07:13 O2 Del Method Room Air 11/02/25 07:13 BMI result Body Mass Index 31.9 Course Reevaluation(s) Reevaluation #1: Chest x-ray unremarkable. Patient will be discharged with prednisone benzonatate and albuterol. Educated patient on diagnosis and treatment plan, answered all question, patient verbalizes understanding. At this time patient will be discharged home, advised to return with new or worsening symptoms. Educated on worrisome signs and symptoms and when to return. At this time I feel comfortable discharge home. Time: 09:20 Medical Decision Making Medical Decision Making MDM Narrative: Assessment & Plan Female patient with uncomplicated Influenza A infection presenting with fever, body aches, sore throat, chest congestion, productive cough, and wheezing. Medical Decision-Making: The patient presented with acute onset of upper and lower respiratory symptoms, including fever, body aches, sore throat, and cough with change in sputum color. Differential diagnosis included viral upper respiratory infection, influenza, bacterial pneumonia, and bronchitis. Rapid Influenza A test was positive, confirming diagnosis. Chest X-ray was obtained to rule out pneumonia, which was negative. No evidence of bacterial superinfection or complications. The patient is otherwise healthy, with no significant comorbidities or immunosuppression. Rationale for supportive care is based on symptom duration >48 hours and current guidelines, which do not recommend antiviral therapy for otherwise healthy adults presenting after 48 hours of symptom onset. Wheezing on exam suggests a reactive airway component, for which bronchodilator therapy is indicated. Systemic corticosteroids are not routinely recommended for uncomplicated influenza, but may be considered for significant wheezing or airway reactivity. Counseling: Patient was counseled regarding the diagnosis of Influenza A, expected course of illness, and rationale for supportive care. Instructions provided on use of ibuprofen and acetaminophen for fever and body aches, inhaler for cough and wheezing, and prednisone as prescribed. Discussed importance of hydration, rest, and infection prevention measures (hand hygiene, mask use, avoiding close contact with others while symptomatic). Return precautions reviewed, including new or worsening symptoms such as shortness of breath, chest pain, persistent high fever, or inability to tolerate oral intake. Patient verbalized understanding and agreement with plan. Time Spent: Total time spent on evaluation and management, including history, exam, review of results, counseling, and coordination of care: Problem #1: Influenza A infection Assessment: Confirmed by rapid test; symptom onset >48 h ago; currently without complications. Plan: * Symptomatic/supportive care. * Ibuprofen every 6 h PRN body aches. * Acetaminophen every 4 h PRN fever/pain. * Encourage hydration and rest. * Return to ED for any new or worsening symptoms. * Infection prevention counseling: hand hygiene, mask use, avoid close contact while symptomatic. Problem #2: Cough with wheezing Assessment: Wheezing noted on exam, likely reactive airway component related to influenza. Plan: * Prescribe inhaler (bronchodilator) for symptomatic relief. * Prednisone course to reduce airway inflammation. * Monitor response; return if dyspnea or cough worsens. Differential Diagnosis Differential Diagnoses: The differential diagnosis associated with the presentation includes Differential Diagnosis: * Influenza A (most likely diagnosis): Confirmed by rapid influenza test. Classic symptoms of fever, body aches, sore throat, cough, and congestion. No evidence of complications. Supported by positive rapid test and clinical presentation. * Other viral upper respiratory infections (e.g., rhinovirus, coronavirus, RSV): Considered due to overlapping symptoms (cough, congestion, sore throat, body aches), but less likely given positive influenza test and absence of sick contacts or recent outbreaks. * Acute bacterial bronchitis: Considered due to productive cough and change in sputum color. However, absence of high fever, lack of toxic appearance, and no evidence of bacterial superinfection on exam or labs make this less likely. * Community-acquired pneumonia: Ruled out by normal chest X-ray and lack of focal findings (no rales, consolidation, or respiratory distress). No hypoxia or chest pain. * Asthma/reactive airway disease: Wheezing present on exam, but patient denies prior history of asthma or chronic lung disease. Wheezing likely secondary to viral infection rather than underlying chronic condition. * COVID-19: Not tested during this visit. Less likely given positive influenza test, lack of known exposure, and absence of anosmia, ageusia, or GI symptoms. However, cannot be fully excluded without testing. * Acute sinusitis: Considered due to congestion and sore throat, but no facial p ain, pressure, or purulent nasal discharge. No maxillary tenderness on exam. * Allergic rhinitis: Symptoms of congestion and sore throat present, but fever and body aches are atypical for allergic etiology. No history of allergies. * Exacerbation of chronic lung disease (COPD, asthma): No history of chronic lung disease, making this unlikely. Admission/Observation Consideration of admission/observation: Escalation of care including admission/observation considered Lab Data MDM Lab Attestation statement: I reviewed the patient's lab results. Laboratory data relevant for visit: * Rapid Influenza test: Positive for Influenza A. Labs: Lab Results 11/02/25 11/02/25 Range/Units 07:32 07:33 Influenza Type A (PCR) POSITIVE A (Negative) Influenza Type B (PCR) NEGATIVE (Negative) RSV RNA Qual (PCR) NEGATIVE (Negative) SARS-CoV-2 RNA (RT-PCR) NEGATIVE (Negative) S. pyogenes GrpA BHARAT Negative (Negative) Independent Interpretation I performed an independent interpretation of an: Plain X-Ray (Findings: No consolidation or effusion. Mild chronic interstitial prominence. Heart size is normal. No acute fracture. IMPRESSION: 1. No acute findings.) Radiology Impression Discussion of test interpretation with radiology: I have reviewed the radiologist's reading. External Record Review External record reviewed: Inpatient record, Office record, Outpatient record, Prior outpatient labs, Prior outpatient radiology, Primary care record and Outside ED record Chronic Conditions Patient?s care impacted by: Other (denies ) Critical Care Time Critical Care Time Critical Care Time: No Discharge Plan Discharge Clinical Impression: Influenza Patient Disposition: Home, Self-Care Instructions: Influenza (ED) Additional Instructions: Take your medications as prescribed. If you were prescribed antibiotics today, it is important that you take your medication to their entirety, do not skip any doses, do not finish them early. Follow-up with your primary care provider this week. Return to the emergency department with new or worsening symptoms. Such as fevers, chills, chest pain, shortness of breath, nausea, vomiting, dizziness, h eadache, vision changes, lethargy In case of emergency call 911 Prescriptions: New albuterol sulfate 90 mcg/actuation aerosol powdr breath activated 2 inh inhalation Q4-6H PRN (Reason: shortness of breath or wheezing) Qty: 1 0RF benzonatate 100 mg capsule 100 mg PO BID PRN (Reason: cough) Qty: 20 0RF prednisone 20 mg tablet 40 mg PO DAILY 5 Days Qty: 10 0RF No Action amoxicillin-pot clavulanate 875-125 mg tablet 1 tab PO BID 7 Days Qty: 14 0RF cyanocobalamin (vitamin B-12) 1,000 mcg/mL solution 1,000 mcg subcut Q4W Referrals: Bradley Huitron MD [Primary Care Provider, Internal Medicine] Print Language: Israeli
[2025-11-02 09:21] VITALS: BP 144/68; PULSE 72; RESP 18; TEMP 36.7; O2SAT 94
== END 2025-11-02 09:21 | disposition home or self-care (01) ==
PROVIDERS: Emergency Provider Emergency Medicine; PCP Family Medicine
DX: J10.1 Influenza due to other identified influenza virus with other respiratory manifestations (principal); R05.9 Cough, unspecified; Z03.818 Encounter for observation for suspected exposure to other biological agents ruled out; Z87.891 Personal history of nicotine dependence
CPT/HCPCS: 71046; 87637; 87651; 99282; 99283

== ENCOUNTER → 2025-11-02 07:16 | Outpatient (BNV) | payer MEDICARE, SELFPAY | PROVIDERS: PCP Family Medicine; Visit Provider Radiology Vascular & Interventional Radiology | DX: R05.9 Cough, unspecified (principal) | CPT/HCPCS: 71046 ==